=== PATIENT | female | born 1960 | race Caucasian/White ===

== ENCOUNTER → 2016-03-24 | Outpatient (CLI) | payer BC ==
[~2016-03-24] MED LIST: CALCTAB5 PO; GLUCTAB18 PO; MULT-506 PO
== END | disposition home or self-care (01) ==
LOC: C.PAPS 09:59
PROVIDERS: ATTEND Obstetrics & Gynecology
DX: Z01.419 Encounter for gynecological examination (general) (routine) without abnormal findings (principal); R87.616 Satisfactory cervical smear but lacking transformation zone

== ENCOUNTER → 2016-08-26 | Outpatient (CLI) | payer BC ==
--- NOTE | 2016-08-29 12:37 | MAMMOGRAPHY REPORT ---
BILATERAL DIGITAL SCREENING MAMMOGRAM TOMOSYNTHESIS WITH CAD: 08/26/2016 TECHNIQUE: Breast tomosynthesis in addition to standard 2D mammography was performed. Current study was also evaluated with a Computer Aided Detection (CAD) system. COMPARISON: Comparison is made to exams dated: 08/13/2015 mammogram, 08/06/2014 mammogram, 07/26/2013 m ammogram, 07/25/2012 mammogram, 07/22/2011 mammogram, and 07/22/2011 ultrasound - [facility]. BREAST COMPOSITION: The tissue of both breasts is heterogeneously dense, which may obscure small mas ses. FINDINGS: No suspicious masses, calcifications, or areas of architectural distortion are noted in ei ther breast. There has been no significant interval change compared to prior exams. Small bilateral circumscribed benign-appearing masses are again noted bilaterally, which are considered benign given the multiplicity and bilaterality and likely represent cysts. Bilateral benign-appearing calcificati ons are stable. IMPRESSION: ACR BI-RADS CATEGORY 2: BENIGN There is no mammographic evidence of malignancy. A 1 year screening mammogram is recommended. The pa tient will receive written notification of the results. Approximately 10% of breast cancers are not detected with mammography. A negative mammographic report should not delay biopsy if a clinically suggestive mass is present. Cherelle Conley M.D. /:08/26/2016 15:20:37 Acquisition Marketing Coordinator: Bev DEJESUS(R)(M), [facility] letter sent: Normal 1/2 BI-RADS Code: ACR BI-RADS Category 2: Benign
== END | disposition home or self-care (01) ==
LOC: C.MAMM 12:30
PROVIDERS: ATTEND Obstetrics & Gynecology
DX: Z12.31 Encounter for screening mammogram for malignant neoplasm of breast (principal)

== ENCOUNTER → 2017-03-29 | Outpatient (CLI) | payer BC | END | disposition home or self-care (01) | LOC: C.PAPS 13:28 | PROVIDERS: ATTEND Obstetrics & Gynecology | DX: Z01.419 Encounter for gynecological examination (general) (routine) without abnormal findings (principal) ==

== ENCOUNTER → 2017-06-01 | Outpatient (CLI) | payer BC | END | disposition home or self-care (01) | LOC: C.CPL 09:56 | PROVIDERS: ATTEND Family Medicine | DX: R07.9 Chest pain, unspecified (principal) ==

== ENCOUNTER → 2017-06-14 | Outpatient (CLI) | payer BC ==
--- NOTE | 2017-06-14 13:39 | Exercise Stress Test Report ---
Exercise Stress Test Report Exercise Stress Test Report Date of Service: 06/14/2017 Exercise Stress Test Report Procedure: Exercise stress ECG Ordering physician: Dr. Ernestine Caputo Indications: 1. Chest Pain Procedural details: Resting ECG demonstrated normal sinus rhythm at 88 bpm. Exercise ECG demonstrated no significant ST changes. No arrhythmia. Very rare PVC. Patient exercised for a total of 6 minutes and 5 seconds via standard Lux protocol, achieving 7.1 METS. Maximum heart rate was 153 bpm, representing 93% MPHR. Resting blood pressure was 144/87mmHg. Maximum blood pressure was 191/93mmHg. No chest pain or shortness of breath reported. Exercise terminated secondary to ankle pain. Impression: 1. Negative exercise ECG for ischemia at 93% MPHR. 2. No arrhythmia. 3. No chest pain. 4. Appropriate blood pressure response to exercise. 5. Fair exercise tolerance.
== END | disposition home or self-care (01) ==
LOC: C.CPL 08:45
PROVIDERS: ATTEND Family Medicine
DX: R07.9 Chest pain, unspecified (principal)

== ENCOUNTER → 2017-10-05 | Outpatient (CLI) | payer BC ==
--- NOTE | 2017-10-06 15:28 | MAMMOGRAPHY REPORT ---
BILATERAL DIGITAL SCREENING MAMMOGRAM TOMOSYNTHESIS WITH CAD: 10/05/2017 CLINICAL HISTORY: Routine screening. Patient has no complaints. TECHNIQUE: The study was acquired using full field digital technology and interpreted from soft copy. Breast tomosynthesis in addition to standard 2D mammography was performed. Current study was also ev aluated with a Computer Aided Detection (CAD) system. COMPARISON: Comparison is made to exams dated: 08/26/2016 mammogram, 08/13/2015 mammogram, 08/06/2014 m ammogram, 07/26/2013 mammogram, 07/25/2012 mammogram, and 07/19/2011 mammogram - [facility]. BREAST COMPOSITION: The tissue of both breasts is heterogeneously dense, which may obscure small mass es. FINDINGS: No suspicious masses, calcifications, or areas of architectural distortion are noted in either breast . There has been no significant interval change compared to prior exams. IMPRESSION: ACR BI-RADS CATEGORY 1: NEGATIVE There is no mammographic evidence of malignancy. A 1 year screening mammogram is recommended.( [id number]) The patient will receive written notification of the results. Some breast cancers are not detected with mammography. A negative mammographic report should not quyen y biopsy if a clinically suggestive mass is present. Cherelle Conley M.D. ah/:10/05/2017 15:18:18 Lean Manufacturing Leader: RT Jovan(Vinny)(M), [facility] letter sent: Normal 1/2 BI-RADS Code: ACR BI-RADS Category 1: Negative
== END | disposition home or self-care (01) ==
LOC: C.MAMM 14:00
PROVIDERS: ATTEND Obstetrics & Gynecology
DX: Z12.31 Encounter for screening mammogram for malignant neoplasm of breast (principal)